=== PATIENT | female | born 1970 | race Caucasian/White ===

== ENCOUNTER → 2016-03-24 | Outpatient (CLI) | payer BC, OTHER ==
[2004-08-27 14:40] VITALS: PULSE 91; TEMP 97.3
[~2016-03-24] MED LIST: CELEXA 20MG20 MG/TAB PO; DOXYCYCLINE 10100 MG PO; ESTRACE2 MG PO; NORCO 325 MG-51 TAB PO; PROMETHAZINE12.5 M5 PO; SINGULAIR 110 MG/TAB PO; SYNTHROID0.075 MG/T PO; VIVELLE-DO0.025 MG/2 TD; ZOFRAN 4MG T4 MG/TAB PO
== END ==
LOC: COL.RAD 10:19
DX: F45.8 Other somatoform disorders (principal)

== ENCOUNTER 2016-05-22 21:46 | Emergency (ER) | payer BC, OTHER ==
[~2016-05-22] VITALS: Ht 157.5 cm; Wt 75.9 kg
[2016-05-22 21:48] VITALS: BP 103/71; PULSE 110
[2016-05-22] MEDS ORDERED: SINGULAIR 110 MG/TAB PO (22:06)
[2016-05-22] MEDS ORDERED: VIVELLE-DO0.025 MG/2 TD (22:06)
[2016-05-22] MEDS ORDERED: CELEXA 20MG20 MG/TAB PO (22:14)
[2016-05-22] MEDS ORDERED: SYNTHROID0.075 MG/T PO (22:15)
[2016-05-22 22:48] LABS: BASO % 0.5 % (0.0-2.0); EOS # 0.1 (0.0-0.7); EOS % 1.3 % (0-4.0); GRAN # 4.6 (1.4-6.5); GRAN % 75.3 % (42.2-75.2); HEMATOCRIT 38.8 % (37.0-47.0); HEMOGLOBIN 12.9 g/dl (12.5-16.0); LYMPH # 0.7 (1.2-3.4); LYMPH % 11.5 % (20.0-51.0); MEAN CELL VOLUME 96 fl (80.0-100.0); MEAN CORPUSCULAR HEMOGLOBIN 32 pg (27.0-31.0); MEAN CORPUSCULAR HGB CONC 33 g/dl (33.0-37.0); MEAN PLATELET VOLUME 10.1 fl (7.4-10.4); MONO # 0.7 (0.1-0.6); MONO % 11.2 % (1.7-9.3); PLATELET COUNT 307 K/mm3 (130-400); RED BLOOD COUNT 4.04 M/mm3 (4.10-5.30); REDCELL DISTRIBUTION WIDTH-CV 12.5 % (11.5-14.5); WHITE BLOOD COUNT 6.2 K/mm3 (4.8-10.8)
[2016-05-22 22:58] LABS: ADJUSTED CALCIUM 9.7 mg/dL (8.4-10.2); ALBUMIN 4.3 gm/dL (3.5-5.0); BILIRUBIN,TOTAL 0.5 mg/dL (0.0-1.0); CALCIUM 9.9 mg/dL (8.4-10.2); CREATININE, serum 0.93 mg/dL (0.52-1.25); PH 7 (5-8); POTASSIUM 3.9 mmol/L (3.4-5.0); SQUAMOUS EPITHELIAL 0-2 /hpf; URINE APPEARANCE Clear; URINE BACTERIA Rare /hpf; URINE BILIRUBIN Negative (NEGATIVE); URINE BLOOD Negative (NEGATIVE); URINE COLOR Straw; URINE GLUCOSE Negative (NEGATIVE); URINE KETONE Negative (NEGATIVE); URINE UROBILINOGEN Negative (NEGATIVE); URINE WBC 0-2 /hpf
[2016-05-22 23:21] LABS: INFLUENZA B NEGATIVE
[2016-05-22 23:22] VITALS: TEMP 98
[2016-05-23] MEDS ORDERED: PROMETHAZINE12.5 M5 PO (00:16)
[2016-05-24] MEDS ORDERED: NORCO 325 MG-51 TAB PO (08:00)
[2016-05-24] MEDS ORDERED: DOXYCYCLINE 10100 MG PO (08:00)
== END 2016-05-23 00:58 | disposition home or self-care (01) ==
LOC: COL.ER 21:46
PROVIDERS: Nurse Practitioner
DX: R51 Headache (principal); B34.9 Viral infection, unspecified; J45.909 Unspecified asthma, uncomplicated; R50.9 Fever, unspecified
CPT/HCPCS: J1200; J1885; J2405; J2550; J3010; J7030

== ENCOUNTER 2016-05-24 05:38 | Emergency (ER) | payer BC, OTHER ==
[~2016-05-24] VITALS: Ht 157.5 cm; Wt 75.9 kg
[~2016-05-24 05:38] MED LIST changes: -DOXYCYCLINE 10100 MG PO; -ESTRACE2 MG PO; -NORCO 325 MG-51 TAB PO; -ZOFRAN 4MG T4 MG/TAB PO
[2016-05-24 05:43] VITALS: TEMP 98.5
[2016-05-24 06:38] LABS: BASO % 0.4 % (0.0-2.0); EOS # 0.1 (0.0-0.7); EOS % 0.9 % (0-4.0); GRAN # 3.5 (1.4-6.5); GRAN % 65.9 % (42.2-75.2); LYMPH # 1.2 (1.2-3.4); LYMPH % 22.1 % (20.0-51.0); MEAN CELL VOLUME 97 fl (80.0-100.0); MEAN CORPUSCULAR HGB CONC 33 g/dl (33.0-37.0); MONO # 0.6 (0.1-0.6); MONO % 10.5 % (1.7-9.3); PLATELET COUNT 250 K/mm3 (130-400); REDCELL DISTRIBUTION WIDTH-CV 12.7 % (11.5-14.5); WHITE BLOOD COUNT 5.4 K/mm3 (4.8-10.8)
[2016-05-24 06:42] LABS: PH 5 (5-8); URINE APPEARANCE Hazy; URINE BACTERIA Rare /hpf; URINE BILIRUBIN Negative (NEGATIVE); URINE BLOOD 1+ (NEGATIVE); URINE COLOR Yellow; URINE GLUCOSE Negative (NEGATIVE); URINE KETONE 1+ (NEGATIVE); URINE UROBILINOGEN Negative (NEGATIVE); URINE WBC 0-2 /hpf
[2016-05-24 06:43] LABS: HEMATOCRIT 35.8 % (37.0-47.0); HEMOGLOBIN 11.9 g/dl (12.5-16.0); MEAN CORPUSCULAR HEMOGLOBIN 32 pg (27.0-31.0)
[2016-05-24 07:00] LABS: ADJUSTED CALCIUM 8.8 mg/dL (8.4-10.2); ALBUMIN 3.7 gm/dL (3.5-5.0); BILIRUBIN,TOTAL 0.5 mg/dL (0.0-1.0); C-REACTIVE PROTEIN 2.3 mg/dL (0.0-0.9); CALCIUM 8.6 mg/dL (8.4-10.2); CREATININE, serum 0.81 mg/dL (0.52-1.25); POTASSIUM 3.8 mmol/L (3.4-5.0); TOTAL PROTEIN 7.1 gm/dL (6.4-8.2)
[2016-05-24] MEDS ORDERED: NORCO 325 MG-51 TAB PO (08:00)
[2016-05-24] MEDS ORDERED: DOXYCYCLINE 10100 MG PO (08:00)
[2016-05-24 08:39] VITALS: BP 96/66; PULSE 83
[2016-05-25] MEDS ORDERED: ESTRACE2 MG PO (14:44)
[2016-05-25] MEDS ORDERED: SYNTHROID0.075 MG/T PO (14:46)
== END 2016-05-24 08:42 | disposition home or self-care (01) ==
LOC: COL.ER 05:38
PROVIDERS: Emergency Medicine
DX: J32.9 Chronic sinusitis, unspecified (principal); R50.9 Fever, unspecified; R51 Headache
CPT/HCPCS: J1885; J2765; J7030

== ENCOUNTER 2016-05-25 12:33 | Inpatient (IN) | payer BC, OTHER ==
[~2016-05-25] VITALS: Ht 157.5 cm; Wt 82.8 kg
[~2016-05-25 12:33] MED LIST changes: +DOXYCYCLINE 10100 MG PO; +NORCO 325 MG-51 TAB PO
[2016-05-25 14:02] VITALS: BP 98/66; PULSE 67; TEMP 98.6
[2016-05-25] MEDS ORDERED: ESTRACE2 MG PO (14:44)
[2016-05-25] MEDS ORDERED: SYNTHROID0.075 MG/T PO (14:46)
[2016-05-25 15:35] LABS: BASO % 0.3 % (0.0-2.0); EOS # 0.1 (0.0-0.7); EOS % 2.1 % (0-4.0); GRAN # 1.6 (1.4-6.5); GRAN % 39.9 % (42.2-75.2); LYMPH # 1.9 (1.2-3.4); LYMPH % 48.6 % (20.0-51.0); MEAN CELL VOLUME 100 fl (80.0-100.0); MEAN CORPUSCULAR HGB CONC 32 g/dl (33.0-37.0); MEAN PLATELET VOLUME 10.4 fl (7.4-10.4); MONO # 0.3 (0.1-0.6); MONO % 8.8 % (1.7-9.3); PLATELET COUNT 217 K/mm3 (130-400); RED BLOOD COUNT 3.48 M/mm3 (4.10-5.30); REDCELL DISTRIBUTION WIDTH-CV 12.7 % (11.5-14.5); WHITE BLOOD COUNT 3.9 K/mm3 (4.8-10.8)
[2016-05-25 15:39] LABS: HEMATOCRIT 34.7 % (37.0-47.0); HEMOGLOBIN 11.1 g/dl (12.5-16.0); MEAN CORPUSCULAR HEMOGLOBIN 32 pg (27.0-31.0)
[2016-05-25 15:45] LABS: INR 1.1 (0.8-3.0); PROTHROMBIN TIME 12.3 SECONDS (9.7-12.8)
[2016-05-25 15:51] LABS: ADJUSTED CALCIUM 8.7 mg/dL (8.4-10.2); ALBUMIN 3.4 gm/dL (3.5-5.0); BILIRUBIN,TOTAL 0.5 mg/dL (0.0-1.0); C-REACTIVE PROTEIN 1.4 mg/dL (0.0-0.9); CALCIUM 8.2 mg/dL (8.4-10.2); CREATININE, serum 0.72 mg/dL (0.52-1.25); TOTAL PROTEIN 6.6 gm/dL (6.4-8.2)
[2016-05-25 16:53] VITALS: BP 103/67; PULSE 73; TEMP 98.8
[2016-05-25 16:55] LABS: CEREBROSPINAL TUBE #4; CSF APPEARANCE CLEAR; CSF COLOR COLORLESS
[2016-05-25 19:56] LABS: PH 5 (5-8); SQUAMOUS EPITHELIAL 0-2 /hpf; URINE APPEARANCE Clear; URINE BACTERIA Rare /hpf; URINE BILIRUBIN Negative (NEGATIVE); URINE BLOOD Negative (NEGATIVE); URINE COLOR Yellow; URINE GLUCOSE Negative (NEGATIVE); URINE KETONE 2+ (NEGATIVE); URINE UROBILINOGEN Negative (NEGATIVE); URINE WBC 0-2 /hpf
[2016-05-25 22:04] VITALS: BP 99/50; PULSE 75; TEMP 99.3
[2016-05-26 04:29] VITALS: BP 113/60; PULSE 69; TEMP 98.7
[2016-05-26 07:29] LABS: CALCIUM 8.4 mg/dL (8.4-10.2); CREATININE, serum 0.68 mg/dL (0.52-1.25); POTASSIUM 3.9 mmol/L (3.4-5.0)
[2016-05-26 07:32] LABS: BASO % 0.3 % (0.0-2.0); EOS % 0.9 % (0-4.0); GRAN # 1.5 (1.4-6.5); GRAN % 44.8 % (42.2-75.2); LYMPH # 1.5 (1.2-3.4); LYMPH % 45.7 % (20.0-51.0); MEAN CELL VOLUME 99 fl (80.0-100.0); MEAN CORPUSCULAR HGB CONC 33 g/dl (33.0-37.0); MEAN PLATELET VOLUME 10.5 fl (7.4-10.4); MONO # 0.3 (0.1-0.6); MONO % 8.3 % (1.7-9.3); PLATELET COUNT 236 K/mm3 (130-400); RED BLOOD COUNT 3.48 M/mm3 (4.10-5.30); REDCELL DISTRIBUTION WIDTH-CV 12.5 % (11.5-14.5); WHITE BLOOD COUNT 3.2 K/mm3 (4.8-10.8)
[2016-05-26 07:33] LABS: HEMATOCRIT 34.3 % (37.0-47.0); HEMOGLOBIN 11.2 g/dl (12.5-16.0); MEAN CORPUSCULAR HEMOGLOBIN 32 pg (27.0-31.0)
[2016-05-26 08:14] VITALS: BP 114/65; PULSE 66; TEMP 98.3
[2016-05-26 11:42] VITALS: BP 98/51; PULSE 70; TEMP 98.6
[2016-05-26 15:33] VITALS: BP 83/46; PULSE 70; TEMP 97.9
[2016-05-26 15:45] VITALS: BP 91/66
[2016-05-26 20:37] VITALS: BP 103/70; PULSE 62; TEMP 97.8
[2016-05-27] VITALS (7 sets, daily range): BP systolic 80–124; BP diastolic 50–75; PULSE 46–72; TEMP 97.6–98.9
[2016-05-28 03:56] VITALS: BP 107/64; PULSE 56; TEMP 98
[2016-05-28 08:00] VITALS: BP 124/68; PULSE 52; TEMP 97.6
[2016-05-28 12:30] VITALS: BP 124/74; PULSE 56
[2016-05-28] MEDS ORDERED: ZOFRAN 4MG T4 MG/TAB PO (13:59)
== END 2016-05-28 17:00 | disposition home or self-care (01) | DRG 866 ==
LOC: MEDICAL 12:33
PROVIDERS: Physician Assistant
PROC: 009U3ZX Drainage of Spinal Canal, Percutaneous Approach, Diagnostic (ICD-10-PCS; principal; 2016-05-25)
PROC: 3E0R3GC Introduction of Other Therapeutic Substance into Spinal Canal, Percutaneous Approach (ICD-10-PCS; 2016-05-28)
DX: B34.9 Viral infection, unspecified (principal); G97.1 Other reaction to spinal and lumbar puncture; E03.9 Hypothyroidism, unspecified; F32.9 Major depressive disorder, single episode, unspecified; J45.909 Unspecified asthma, uncomplicated; G43.909 Migraine, unspecified, not intractable, without status migrainosus; Z87.891 Personal history of nicotine dependence
CPT/HCPCS: 99222-AI; 99231-AI; 99232-AI; 99239; J1200; J1885; J2270; J2405; J2550; J2765; J2920; J3010; J7030

== ENCOUNTER → 2016-12-14 | Outpatient (CLI) | payer BC, OTHER ==
[2004-08-27 14:40] VITALS: TEMP 97.3
[~2016-12-14] MED LIST changes: +ESTRACE2 MG PO; +ZOFRAN 4MG T4 MG/TAB PO
== END ==
LOC: MC.RAD 11:23
DX: Z12.31 Encounter for screening mammogram for malignant neoplasm of breast (principal)

== ENCOUNTER 2017-06-14 20:07 | Emergency (ER) | payer BC, OTHER ==
[~2017-06-14] VITALS: Ht 157.5 cm; Wt 80.9 kg
[2017-06-14 20:25] VITALS: TEMP 97.8
[2017-06-14 20:45] LABS: BASO % 0.4 % (0.0-2.0); EOS # 0.3 (0.0-0.7); EOS % 3.8 % (0-4.0); GRAN # 4.7 (1.4-6.5); GRAN % 52.3 % (42.2-75.2); HEMATOCRIT 40.2 % (37.0-47.0); HEMOGLOBIN 13.4 g/dl (12.5-16.0); LYMPH # 3.2 (1.2-3.4); MEAN CELL VOLUME 100 fl (80.0-100.0); MEAN CORPUSCULAR HEMOGLOBIN 33 pg (27.0-31.0); MEAN CORPUSCULAR HGB CONC 33 g/dl (33.0-37.0); MONO # 0.7 (0.1-0.6); MONO % 7.3 % (1.7-9.3); PLATELET COUNT 348 K/mm3 (130-400); RED BLOOD COUNT 4.03 M/mm3 (4.10-5.30); REDCELL DISTRIBUTION WIDTH-CV 12.2 % (11.5-14.5)
[2017-06-14 20:51] LABS: ALANINE AMINOTRANSFERASE 35 U/L (9-52); ALBUMIN 4.2 gm/dL (3.5-5.0); ALKALINE PHOSPHATASE 63 U/L (50-136); ANION GAP 14 mmol/L (7-16); AST,SGOT 29 U/L (15-37); BILIRUBIN,TOTAL 0.4 mg/dL (0.0-1.0); BLOOD UREA NITROGEN 14 mg/dL (7-17); CALCIUM 9.4 mg/dL (8.4-10.2); CARBON DIOXIDE 24 mmol/L (22-30); CHLORIDE 105 mmol/L (98-107); GLUCOSE 88 mg/dL (74-106); LIPASE 161 U/L (23-300); POTASSIUM 3.3 mmol/L (3.4-5.0); SODIUM 142 mmol/L (137-145); TOTAL PROTEIN 8.3 gm/dL (6.4-8.2)
[2017-06-14 21:03] LABS: TROPONIN-I < 0.012 ng/mL (0.000-0.034)
[2017-06-14 22:00] VITALS: BP 96/63; PULSE 76
== END 2017-06-14 22:00 | disposition left against medical advice (07) ==
LOC: COL.ER 20:07
PROVIDERS: Emergency Medicine
DX: R07.89 Other chest pain (principal); J45.909 Unspecified asthma, uncomplicated; E03.9 Hypothyroidism, unspecified; F41.9 Anxiety disorder, unspecified; Z90.710 Acquired absence of both cervix and uterus; Z87.891 Personal history of nicotine dependence
CPT/HCPCS: C9113; J2765

== ENCOUNTER → 2017-06-16 | Outpatient (CLI) | payer BC, OTHER ==
[2004-08-27 14:40] VITALS: TEMP 97.3
== END ==
LOC: COL.RAD 08:56
DX: R10.13 Epigastric pain (principal)

== ENCOUNTER → 2017-06-23 | Outpatient (CLI) | payer BC, OTHER ==
[2004-08-27 14:40] VITALS: TEMP 97.3
== END ==
LOC: COL.RAD 06:37
DX: R10.13 Epigastric pain (principal)
CPT/HCPCS: A9537

== ENCOUNTER → 2018-06-01 | Outpatient (CLI) | payer BC, OTHER ==
[2004-08-27 14:40] VITALS: TEMP 97.3
== END ==
LOC: MC.RAD 09:11
DX: Z12.31 Encounter for screening mammogram for malignant neoplasm of breast (principal)

== ENCOUNTER → 2019-10-25 | Outpatient (CLI) | payer BC, OTHER ==
[2004-08-27 14:40] VITALS: TEMP 97.3
== END ==
LOC: MC.RAD 13:33
DX: Z12.31 Encounter for screening mammogram for malignant neoplasm of breast (principal)

== ENCOUNTER → 2021-03-04 | Outpatient (CLI) | payer BC, OTHER ==
[2004-08-27 14:40] VITALS: TEMP 97.3
== END ==
LOC: MC.RAD 13:11
DX: Z12.31 Encounter for screening mammogram for malignant neoplasm of breast (principal)